=== PATIENT | female | born 1935 ===

== ENCOUNTER 2021-08-19 16:44 | Inpatient (IN) ==
[2021-08-19 18:00] LABS: Basophils % 0.2 %; Eosinophils % 0.1 %; Hematocrit 35.1 % (35.3-44.9); Hemoglobin 11.9 g/dL (11.5-15.4); Immature Granulocytes % 0.4 % (0-4); Lymphocytes # 1.1 K/mcL (0.6-4.6); Lymphocytes % 8.1 %; Mean Corpuscular HGB Conc 33.9 g/dL (31.6-35.5); Mean Corpuscular Hemoglobin 29.6 pg (28.0-33.3); Mean Corpuscular Volume 87.3 fL (83.0-100.0); Mean Platelet Volume 10.2 fL (9.4-12.4); Monocytes # 1.1 K/mcL (0.0-1.3); Monocytes % 7.9 %; Neutrophils # 11.4 K/mcL (1.6-8.9); Platelet Count 219 K/mcL (140-400); Red Blood Count 4.02 M/mcL (3.82-4.97); Red Cell Distribution Width 14.6 % (11.5-14.5); Segmented Neutrophils % 83.3 %; White Blood Count 13.7 K/mcL (4.3-11.1)
[2021-08-19 18:36] LABS: Alanine Aminotransferase 17 Units/L (7-52); Albumin 4.2 g/dL (3.5-5.7); Albumin/Globulin Ratio 1.6 (1.1-2.2); Alkaline Phosphatase 60 Units/L (34-104); Aspartate Amino Transferase 27 Units/L (13-39); BUN/Creatinine Ratio 28 (6-26); Bilirubin,Total 0.7 mg/dL (0.3-1.0); Blood Urea Nitrogen 16 mg/dL (8-23); Calcium 9.9 mg/dL (8.6-10.3); Carbon Dioxide 24 mEq/L (23-29); Chloride 91 mEq/L (98-107); Ethanol < 10 mg/dL (Less than 10); Globulin 2.7 g/dL (2.4-3.5); Glucose 145 mg/dL (70-105); Osmolality,Calculated 264 (280-300); Potassium 4.6 mEq/L (3.5-5.1); Sodium 125 mEq/L (136-145); Total Protein 6.9 g/dL (6.4-8.9); eGFR For African Americans > 60 (> 60); eGFR For Non-African Americans > 60 (> 60)
[2021-08-19 18:36] LABS: Amphetamine Screen,Urine Negative ng/mL (Cutoff=1000); Barbiturate Screen,Urine Negative ng/mL (Cutoff=200); Benzodiazepines Screen,Urine Negative ng/mL (Cutoff=200); Cannabinoid Screen,Urine Negative ng/mL (Cutoff = 50); Cocaine Screen,Urine Negative ng/mL (Cutoff= 300); Opiate Screen,Urine Positive ng/mL (Cutoff=300); Phencyclidine Screen,Urine Negative ng/mL (Cutoff=25)
[2021-08-19 18:37] LABS: Bacteria,Urine Few per hpf (None-Few); Bilirubin,Urine Negative (Negative); Blood,Urine Trace (Negative); Clarity,Urine Ex.Turbid (Clear); Color,Urine Yellow (Yellow); Glucose,Urine (UA) Normal (Normal); Ketones,Urine 20 mg/dL (Negative); Leukocyte Esterase,Urine Large (Negative); Mucus,Urine Few per lpf (None-Few); Nitrite,Urine Negative (Negative); Protein,Urine 50 mg/dL (Neg-Trace); RBC,Urine 0-3 per hpf (0-3); WBC,Urine TNTC per hpf (0-3)
[2021-08-19] MEDS ORDERED: Ondansetron 4 MG/2 ML VIAL IVP PRN (22:11)
[2021-08-19] MEDS ORDERED: Naloxone 0.4 MG/ML INJ IVP PRN (22:11)
[2021-08-19] MEDS ORDERED: Acetaminophen 325 MG TABLET PO PRN (22:11)
[2021-08-19 23:13] LABS: BUN/Creatinine Ratio 31 (6-26); Blood Urea Nitrogen 15 mg/dL (8-23); Calcium 8.8 mg/dL (8.6-10.3); Carbon Dioxide 20 mEq/L (23-29); Chloride 94 mEq/L (98-107); Glucose 132 mg/dL (70-105); Osmolality,Calculated 259 (280-300); Potassium 4.2 mEq/L (3.5-5.1); Sodium 123 mEq/L (136-145); eGFR For African Americans > 60 (> 60); eGFR For Non-African Americans > 60 (> 60)
[2021-08-20] MEDS ORDERED: 0.9 % Sodium Chloride 1,000 ML IVC SCH (00:15)
[2021-08-20 08:07] LABS: Basophils % 0.1 %; Eosinophils # 0.1 K/mcL (0.0-0.6); Eosinophils % 1.5 %; Immature Granulocytes % 0.4 % (0-4); Lymphocytes # 1.4 K/mcL (0.6-4.6); Lymphocytes % 16.9 %; Mean Corpuscular HGB Conc 33.8 g/dL (31.6-35.5); Mean Corpuscular Hemoglobin 29.9 pg (28.0-33.3); Mean Corpuscular Volume 88.4 fL (83.0-100.0); Mean Platelet Volume 10.1 fL (9.4-12.4); Monocytes # 1.2 K/mcL (0.0-1.3); Monocytes % 14.8 %; Neutrophils # 5.5 K/mcL (1.6-8.9); Platelet Count 170 K/mcL (140-400); Red Blood Count 3.28 M/mcL (3.82-4.97); Red Cell Distribution Width 14.5 % (11.5-14.5); Segmented Neutrophils % 66.3 %; White Blood Count 8.2 K/mcL (4.3-11.1)
[2021-08-20 08:14] LABS: INR 1.8; Prothrombin Time 19.9 Seconds (9.4-12.1)
[2021-08-20 08:16] LABS: Activated Partial Thrombo Time 63.3 Seconds (26.0-36.0); Hemoglobin 9.8 g/dL (11.5-15.4)
[2021-08-20 08:24] LABS: Alanine Aminotransferase 12 Units/L (7-52); Albumin 3.4 g/dL (3.5-5.7); Albumin/Globulin Ratio 1.7 (1.1-2.2); Alkaline Phosphatase 44 Units/L (34-104); Aspartate Amino Transferase 14 Units/L (13-39); BUN/Creatinine Ratio 32 (6-26); Bilirubin,Total 0.5 mg/dL (0.3-1.0); Blood Urea Nitrogen 18 mg/dL (8-23); Calcium 8.7 mg/dL (8.6-10.3); Carbon Dioxide 25 mEq/L (23-29); Chloride 95 mEq/L (98-107); Glucose 152 mg/dL (70-105); Magnesium 1.7 mg/dL (1.6-2.6); Osmolality,Calculated 265 (280-300); Phosphorous 2.4 mg/dL (2.7-4.5); Sodium 125 mEq/L (136-145); Total Protein 5.4 g/dL (6.4-8.9); eGFR For African Americans > 60 (> 60); eGFR For Non-African Americans > 60 (> 60)
[2021-08-20] MEDS ORDERED: Perflutren Lipid Microsphere 1.3 ML in 0.9 % Sodium Chloride 8.7 ML IVP PRN (08:59)
[2021-08-20] MEDS: 0.9 % Sodium Chloride 1,000 ML IVC SCH (11:56)
[2021-08-20 17:55] LABS: BUN/Creatinine Ratio 39 (6-26); Blood Urea Nitrogen 20 mg/dL (8-23); Calcium 8.6 mg/dL (8.6-10.3); Carbon Dioxide 23 mEq/L (23-29); Chloride 99 mEq/L (98-107); Glucose 127 mg/dL (70-105); Osmolality,Calculated 270 (280-300); Sodium 128 mEq/L (136-145); eGFR For African Americans > 60 (> 60); eGFR For Non-African Americans > 60 (> 60)
[2021-08-20 21:38] LABS: BUN/Creatinine Ratio 39 (6-26); Blood Urea Nitrogen 20 mg/dL (8-23); Calcium 8.4 mg/dL (8.6-10.3); Carbon Dioxide 23 mEq/L (23-29); Chloride 98 mEq/L (98-107); Glucose 120 mg/dL (70-105); Osmolality,Calculated 268 (280-300); Sodium 127 mEq/L (136-145); eGFR For African Americans > 60 (> 60); eGFR For Non-African Americans > 60 (> 60)
[2021-08-20] MEDS: Melatonin 3 MG TABLET PO PRN (22:25)
[2021-08-21] MEDS: Levothyroxine 25 MCG TABLET PO SCH (05:50)
[2021-08-21 07:05] LABS: Basophils % 0.3 %; Eosinophils # 0.2 K/mcL (0.0-0.6); Eosinophils % 2.6 %; Hematocrit 28.3 % (35.3-44.9); Hemoglobin 9.4 g/dL (11.5-15.4); Immature Granulocytes % 0.4 % (0-4); Lymphocytes # 1.1 K/mcL (0.6-4.6); Lymphocytes % 16.5 %; Mean Corpuscular HGB Conc 33.2 g/dL (31.6-35.5); Mean Corpuscular Hemoglobin 29.5 pg (28.0-33.3); Mean Corpuscular Volume 88.7 fL (83.0-100.0); Mean Platelet Volume 10.6 fL (9.4-12.4); Monocytes % 15.3 %; Neutrophils # 4.4 K/mcL (1.6-8.9); Platelet Count 175 K/mcL (140-400); Red Blood Count 3.19 M/mcL (3.82-4.97); Red Cell Distribution Width 14.3 % (11.5-14.5); Segmented Neutrophils % 64.9 %; White Blood Count 6.8 K/mcL (4.3-11.1)
[2021-08-21 07:28] LABS: BUN/Creatinine Ratio 34 (6-26); Blood Urea Nitrogen 17 mg/dL (8-23); Calcium 8.5 mg/dL (8.6-10.3); Carbon Dioxide 22 mEq/L (23-29); Chloride 97 mEq/L (98-107); Glucose 103 mg/dL (70-105); Magnesium 1.7 mg/dL (1.6-2.6); Osmolality,Calculated 262 (280-300); Potassium 4.6 mEq/L (3.5-5.1); Sodium 125 mEq/L (136-145); eGFR For African Americans > 60 (> 60); eGFR For Non-African Americans > 60 (> 60)
[2021-08-21] MEDS: 0.9 % Sodium Chloride 1,000 ML IVC SCH ×2 (07:50→10:42)
[2021-08-21 09:01] LABS: Troponin I 0.27 ng/mL (< 0.04)
[2021-08-21 14:28] LABS: BUN/Creatinine Ratio 30 (6-26); Blood Urea Nitrogen 16 mg/dL (8-23); Calcium 8.6 mg/dL (8.6-10.3); Carbon Dioxide 24 mEq/L (23-29); Chloride 97 mEq/L (98-107); Glucose 137 mg/dL (70-105); Osmolality,Calculated 263 (280-300); Potassium 4.4 mEq/L (3.5-5.1); Sodium 125 mEq/L (136-145); eGFR For African Americans > 60 (> 60); eGFR For Non-African Americans > 60 (> 60)
[2021-08-21] MEDS: QUEtiapine Fumarate 25 MG TABLET PO SCH ×2 (21:41→21:59)
[2021-08-21] MEDS ORDERED: Haloperidol Lactate 5 MG/ML VIAL IVP ONE (21:53)
[2021-08-22 07:02] LABS: Basophils % 0.4 %; Eosinophils % 0.1 %; Hemoglobin 10.8 g/dL (11.5-15.4); Immature Granulocytes % 0.7 % (0-4); Lymphocytes # 0.7 K/mcL (0.6-4.6); Mean Corpuscular HGB Conc 32.7 g/dL (31.6-35.5); Mean Corpuscular Hemoglobin 29.2 pg (28.0-33.3); Mean Corpuscular Volume 89.2 fL (83.0-100.0); Mean Platelet Volume 9.7 fL (9.4-12.4); Monocytes # 0.9 K/mcL (0.0-1.3); Monocytes % 8.9 %; Neutrophils # 8.5 K/mcL (1.6-8.9); Platelet Count 259 K/mcL (140-400); Red Cell Distribution Width 14.1 % (11.5-14.5); Segmented Neutrophils % 82.9 %
[2021-08-22 07:03] LABS: White Blood Count 10.3 K/mcL (4.3-11.1)
[2021-08-22 07:24] LABS: BUN/Creatinine Ratio 22 (6-26); Blood Urea Nitrogen 11 mg/dL (8-23); Calcium 9.4 mg/dL (8.6-10.3); Carbon Dioxide 26 mEq/L (23-29); Chloride 95 mEq/L (98-107); Glucose 143 mg/dL (70-105); Magnesium 1.7 mg/dL (1.6-2.6); Osmolality,Calculated 272 (280-300); Phosphorous 2.2 mg/dL (2.7-4.5); Potassium 3.5 mEq/L (3.5-5.1); Sodium 130 mEq/L (136-145); eGFR For African Americans > 60 (> 60); eGFR For Non-African Americans > 60 (> 60)
[2021-08-22] MEDS: 0.9 % Sodium Chloride 1,000 ML IVC SCH ×2 (07:36→16:17)
[2021-08-22] MEDS: Levothyroxine 25 MCG TABLET PO SCH (10:52)
[2021-08-22] MEDS ORDERED: Lidocaine HCL 4 ML Topical Solution (Laryng-O-Jet Kit Sterile Pak) TP ONE (12:11)
[2021-08-22] MEDS ORDERED: Lidocaine -MPF 2% 5 ML VIAL ONE (12:11)
[2021-08-22] MEDS ORDERED: *HR* Succinylcholine 200 MG/10 ML VIAL IVP ONE (12:11)
[2021-08-22] MEDS ORDERED: Ondansetron 4 MG/2 ML VIAL ONE (12:11)
[2021-08-22] MEDS ORDERED: *HR* FentaNYL (PF) 100 MCG/2 ML VIAL ONE (12:11)
[2021-08-22] MEDS ORDERED: *HR* Propofol 200 MG/20 ML VIAL IVP ONE (12:11)
[2021-08-22] MEDS ORDERED: *HR* Rocuronium Bromide 50 MG/5 ML VIAL ONE (12:11)
[2021-08-22] MEDS ORDERED: Vancomycin 1,000 MG VIAL ONE (12:24)
[2021-08-22] MEDS ORDERED: *HR* Etomidate 40 MG/20 ML VIAL IVP ONE (13:24)
[2021-08-22] MEDS ORDERED: TOTAL JOINT MIXTURE (100ML) INTRAART ONE (13:40)
[2021-08-22] MEDS ORDERED: Albuterol 2.5 MG/3 ML NEBULIZER IH PRN (13:51)
[2021-08-22] MEDS ORDERED: Ondansetron 4 MG/2 ML VIAL IVP PRN ×2 (13:51→14:54)
[2021-08-22] MEDS ORDERED: *HR* OxyCODONE Immed Rel 5 MG TABLET PO PRN ×2 (13:51→14:54)
[2021-08-22] MEDS ORDERED: *HR* Labetalol 20 MG/4 ML SYRINGE IVP PRN (13:51)
[2021-08-22] MEDS ORDERED: *HR* HYDROmorphone PF 0.5 MG/0.5 ML SYRINGE IVP PRN (13:51)
[2021-08-22] MEDS ORDERED: Naloxone 0.4 MG/ML INJ IVP PRN ×2 (13:51→14:54)
[2021-08-22] MEDS ORDERED: flumazeniL 0.5 MG/5 ML VIAL IVP PRN (13:51)
[2021-08-22] MEDS ORDERED: *HR* Meperidine 25 MG/ML SYRINGE IVP PRN (13:51)
[2021-08-22] MEDS ORDERED: Ipratropium Neb 0.5 MG NEBULIZER IH PRN (13:51)
[2021-08-22] MEDS ORDERED: Acetaminophen IV 1,000 MG/100 ML BAG IVPB PRN (13:51)
[2021-08-22] MEDS ORDERED: Tranexamic Acid 1,000 MG/10 ML VIAL ONE (14:11)
[2021-08-22] MEDS ORDERED: Acetaminophen IV 1,000 MG/100 ML BAG IVPB ONE (14:25)
[2021-08-22] MEDS ORDERED: Sennosides 8.6 MG TABLET PO PRN (14:54)
[2021-08-22] MEDS ORDERED: *HR* Promethazine 25 MG/ML VIAL IM PRN (14:54)
[2021-08-22] MEDS ORDERED: MOM Conc 10 ML UD.LIQ PO PRN (14:54)
[2021-08-22] MEDS ORDERED: Ringers Solution, Lactated 1,000 ML IVC SCH (15:00)
[2021-08-22] MEDS: Ascorbic Acid 500 MG TABLET PO SCH (18:00)
[2021-08-22] MEDS: QUEtiapine Fumarate 25 MG TABLET PO SCH (21:01)
[2021-08-22] MEDS: Aspirin Enteric Coated 81 MG Tablet PO SCH (21:16)
[2021-08-22] MEDS: Melatonin 3 MG TABLET PO PRN (23:34)
[2021-08-23 05:28] LABS: Basophils % 0.2 %; Eosinophils % 0.1 %; Hematocrit 27.6 % (35.3-44.9); Hemoglobin 9.5 g/dL (11.5-15.4); Immature Granulocytes % 0.5 % (0-4); Lymphocytes # 1.2 K/mcL (0.6-4.6); Lymphocytes % 12.6 %; Mean Corpuscular HGB Conc 34.4 g/dL (31.6-35.5); Mean Corpuscular Hemoglobin 29.5 pg (28.0-33.3); Mean Corpuscular Volume 85.7 fL (83.0-100.0); Mean Platelet Volume 10.1 fL (9.4-12.4); Monocytes # 1.3 K/mcL (0.0-1.3); Monocytes % 12.9 %; Neutrophils # 7.2 K/mcL (1.6-8.9); Platelet Count 230 K/mcL (140-400); Red Blood Count 3.22 M/mcL (3.82-4.97); Segmented Neutrophils % 73.7 %; White Blood Count 9.8 K/mcL (4.3-11.1)
[2021-08-23] MEDS: Levothyroxine 25 MCG TABLET PO SCH (05:34)
[2021-08-23] MEDS: 0.9 % Sodium Chloride 1,000 ML IVC SCH ×2 (06:55→09:47)
[2021-08-23 08:20] LABS: BUN/Creatinine Ratio 22 (6-26); Blood Urea Nitrogen 12 mg/dL (8-23); Calcium 7.4 mg/dL (8.6-10.3); Carbon Dioxide 21 mEq/L (23-29); Chloride 96 mEq/L (98-107); Glucose 111 mg/dL (70-105); Osmolality,Calculated 266 (280-300); Potassium 3.8 mEq/L (3.5-5.1); Sodium 128 mEq/L (136-145); eGFR For African Americans > 60 (> 60); eGFR For Non-African Americans > 60 (> 60)
[2021-08-23] MEDS: Multivit/Ca/Min/Fe/FA 1 TAB TABLET PO SCH (09:55)
[2021-08-23] MEDS: Aspirin Enteric Coated 81 MG Tablet PO SCH (09:55)
[2021-08-23] MEDS: Ascorbic Acid 500 MG TABLET PO SCH ×2 (09:56→16:52)
[2021-08-24] MEDS: Aspirin Enteric Coated 81 MG Tablet PO SCH ×3 (00:33→23:22)
[2021-08-24] MEDS: QUEtiapine Fumarate 25 MG TABLET PO SCH ×2 (00:33→23:22)
[2021-08-24 05:31] LABS: Phosphorous 2.2 mg/dL (2.7-4.5)
[2021-08-24 06:05] LABS: BUN/Creatinine Ratio 26 (6-26); Blood Urea Nitrogen 11 mg/dL (8-23); Calcium 8.4 mg/dL (8.6-10.3); Carbon Dioxide 25 mEq/L (23-29); Chloride 97 mEq/L (98-107); Glucose 98 mg/dL (70-105); Osmolality,Calculated 271 (280-300); Potassium 3.6 mEq/L (3.5-5.1); Sodium 131 mEq/L (136-145); eGFR For African Americans > 60 (> 60); eGFR For Non-African Americans > 60 (> 60)
[2021-08-24] MEDS: Ascorbic Acid 500 MG TABLET PO SCH ×2 (10:35→23:24)
[2021-08-24] MEDS: Multivit/Ca/Min/Fe/FA 1 TAB TABLET PO SCH (10:36)
[2021-08-24] MEDS: Levothyroxine 25 MCG TABLET PO SCH (10:36)
[2021-08-24] MEDS: Melatonin 3 MG TABLET PO PRN (23:22)
[2021-08-25 03:55] LABS: BUN/Creatinine Ratio 41 (6-26); Blood Urea Nitrogen 19 mg/dL (8-23); Calcium 8.4 mg/dL (8.6-10.3); Carbon Dioxide 26 mEq/L (23-29); Chloride 99 mEq/L (98-107); Glucose 126 mg/dL (70-105); Osmolality,Calculated 278 (280-300); Potassium 3.4 mEq/L (3.5-5.1); Sodium 132 mEq/L (136-145); eGFR For African Americans > 60 (> 60); eGFR For Non-African Americans > 60 (> 60)
[2021-08-25] MEDS: Aspirin Enteric Coated 81 MG Tablet PO SCH ×2 (09:37→20:39)
[2021-08-25] MEDS: Multivit/Ca/Min/Fe/FA 1 TAB TABLET PO SCH (09:37)
[2021-08-25] MEDS: Levothyroxine 25 MCG TABLET PO SCH (09:41)
[2021-08-25] MEDS: Ascorbic Acid 500 MG TABLET PO SCH ×2 (09:41→17:49)
[2021-08-25] MEDS: QUEtiapine Fumarate 25 MG TABLET PO SCH (20:39)
[2021-08-26] MEDS: Levothyroxine 25 MCG TABLET PO SCH (06:08)
[2021-08-26] MEDS: Multivit/Ca/Min/Fe/FA 1 TAB TABLET PO SCH (07:30)
[2021-08-26] MEDS: Aspirin Enteric Coated 81 MG Tablet PO SCH ×2 (07:30→20:55)
[2021-08-26] MEDS: Ascorbic Acid 500 MG TABLET PO SCH ×2 (07:32→16:02)
[2021-08-26] MEDS: QUEtiapine Fumarate 25 MG TABLET PO SCH (20:55)
[2021-08-26] MEDS: Melatonin 3 MG TABLET PO PRN (20:55)
[2021-08-27] MEDS: Levothyroxine 25 MCG TABLET PO SCH (06:48)
[2021-08-27] MEDS: Ascorbic Acid 500 MG TABLET PO SCH ×2 (08:08→16:49)
[2021-08-27] MEDS: Multivit/Ca/Min/Fe/FA 1 TAB TABLET PO SCH (08:08)
[2021-08-27] MEDS: Aspirin Enteric Coated 81 MG Tablet PO SCH ×2 (08:08→19:56)
[2021-08-27 09:21] LABS: BUN/Creatinine Ratio 36 (6-26); Blood Urea Nitrogen 18 mg/dL (8-23); Calcium 8.6 mg/dL (8.6-10.3); Carbon Dioxide 23 mEq/L (23-29); Chloride 97 mEq/L (98-107); Glucose 104 mg/dL (70-105); Osmolality,Calculated 266 (280-300); Potassium 4.9 mEq/L (3.5-5.1); Sodium 127 mEq/L (136-145); eGFR For African Americans > 60 (> 60); eGFR For Non-African Americans > 60 (> 60)
[2021-08-27] MEDS: QUEtiapine Fumarate 25 MG TABLET PO SCH (19:55)
[2021-08-27] MEDS: Melatonin 3 MG TABLET PO PRN (20:01)
[2021-08-28 02:38] LABS: Basophils # 0.1 K/mcL (0.0-0.2); Basophils % 0.8 %; Eosinophils # 0.3 K/mcL (0.0-0.6); Eosinophils % 4.2 %; Hematocrit 28.3 % (35.3-44.9); Hemoglobin 9.4 g/dL (11.5-15.4); Immature Granulocytes % 1.3 % (0-4); Lymphocytes # 1.8 K/mcL (0.6-4.6); Lymphocytes % 23.1 %; Mean Corpuscular HGB Conc 33.2 g/dL (31.6-35.5); Mean Corpuscular Hemoglobin 29.4 pg (28.0-33.3); Mean Corpuscular Volume 88.4 fL (83.0-100.0); Mean Platelet Volume 9.2 fL (9.4-12.4); Monocytes % 13.6 %; Neutrophils # 4.4 K/mcL (1.6-8.9); Platelet Count 316 K/mcL (140-400); Red Cell Distribution Width 13.9 % (11.5-14.5); White Blood Count 7.7 K/mcL (4.3-11.1)
[2021-08-28 02:39] LABS: BUN/Creatinine Ratio 48 (6-26); Blood Urea Nitrogen 23 mg/dL (8-23); Calcium 8.6 mg/dL (8.6-10.3); Carbon Dioxide 25 mEq/L (23-29); Chloride 97 mEq/L (98-107); Glucose 122 mg/dL (70-105); Magnesium 1.7 mg/dL (1.6-2.6); Osmolality,Calculated 269 (280-300); Phosphorous 3.4 mg/dL (2.7-4.5); Potassium 4.9 mEq/L (3.5-5.1); Sodium 127 mEq/L (136-145); eGFR For African Americans > 60 (> 60); eGFR For Non-African Americans > 60 (> 60)
[2021-08-28] MEDS: HYDROcodone BIT/Homatropine 5 MG TABLET PO PRN ×2 (04:06→19:51)
[2021-08-28] MEDS: Levothyroxine 25 MCG TABLET PO SCH (05:47)
[2021-08-28] MEDS: Aspirin Enteric Coated 81 MG Tablet PO SCH ×2 (08:36→19:51)
[2021-08-28] MEDS: Multivit/Ca/Min/Fe/FA 1 TAB TABLET PO SCH (08:36)
[2021-08-28] MEDS: Metoprolol XL (24 HR) Succ 25 MG TAB.ER.24H PO SCH ×2 (08:36→08:54)
[2021-08-28] MEDS: Ascorbic Acid 500 MG TABLET PO SCH ×2 (08:37→17:22)
[2021-08-28] MEDS: QUEtiapine Fumarate 25 MG TABLET PO SCH (19:51)
[2021-08-28] MEDS: Melatonin 3 MG TABLET PO PRN (19:51)
[2021-08-29] MEDS: Levothyroxine 25 MCG TABLET PO SCH (06:07)
[2021-08-29 07:00] LABS: BUN/Creatinine Ratio 46 (6-26); Blood Urea Nitrogen 21 mg/dL (8-23); Calcium 8.5 mg/dL (8.6-10.3); Carbon Dioxide 25 mEq/L (23-29); Chloride 96 mEq/L (98-107); Glucose 98 mg/dL (70-105); Magnesium 1.9 mg/dL (1.6-2.6); Osmolality,Calculated 265 (280-300); Phosphorous 3.6 mg/dL (2.7-4.5); Potassium 5.4 mEq/L (3.5-5.1); Sodium 126 mEq/L (136-145); eGFR For African Americans > 60 (> 60); eGFR For Non-African Americans > 60 (> 60)
[2021-08-29] MEDS: Metoprolol XL (24 HR) Succ 25 MG TAB.ER.24H PO SCH (07:30)
[2021-08-29] MEDS: Aspirin Enteric Coated 81 MG Tablet PO SCH ×2 (07:31→21:29)
[2021-08-29] MEDS: Multivit/Ca/Min/Fe/FA 1 TAB TABLET PO SCH (07:31)
[2021-08-29] MEDS: Ascorbic Acid 500 MG TABLET PO SCH ×2 (07:32→16:05)
[2021-08-29] MEDS ORDERED: 0.9 % Sodium Chloride 1,000 ML IVC SCH (16:00)
[2021-08-29] MEDS: QUEtiapine Fumarate 25 MG TABLET PO SCH (21:29)
[2021-08-29 21:38] LABS: Potassium,Urine 42.9 mEq/L; Sodium, Urine 27.8 mEq/L
[2021-08-30] MEDS: Levothyroxine 25 MCG TABLET PO SCH (04:56)
[2021-08-30 06:14] LABS: BUN/Creatinine Ratio 44 (6-26); Blood Urea Nitrogen 19 mg/dL (8-23); Calcium 8.2 mg/dL (8.6-10.3); Carbon Dioxide 23 mEq/L (23-29); Chloride 98 mEq/L (98-107); Glucose 108 mg/dL (70-105); Magnesium 1.9 mg/dL (1.6-2.6); Osmolality,Calculated 267 (280-300); Potassium 5.2 mEq/L (3.5-5.1); Sodium 127 mEq/L (136-145); eGFR For African Americans > 60 (> 60); eGFR For Non-African Americans > 60 (> 60)
[2021-08-30] MEDS: Aspirin Enteric Coated 81 MG Tablet PO SCH (08:06)
[2021-08-30] MEDS: Multivit/Ca/Min/Fe/FA 1 TAB TABLET PO SCH (08:06)
[2021-08-30] MEDS: Ascorbic Acid 500 MG TABLET PO SCH ×2 (08:06→17:28)
[2021-08-30] MEDS: Metoprolol XL (24 HR) Succ 25 MG TAB.ER.24H PO SCH (08:06)
[2021-08-30 11:18] VITALS: O2SAT 93
[2021-08-30 14:59] VITALS: BP 97/65; PULSE 71; TEMP 98.2
[2021-08-30 15:54] LABS: Influenza A PCR Negative (Negative); Influenza B PCR Negative (Negative); Resp. Syncytial Virus PCR Negative (Negative)
[2021-08-30 16:43] LABS: SARS-CoV-2 by PCR (In House) Negative (Negative)
== END 2021-08-30 19:13 | DRG 521 ==
LOC: EMEROOARM 16:44 → 4WAOSI 16:44 → SUATTDRO 20:47 → 4WAOSI 21:48 → SUATTDRO 08-20 13:40
PROVIDERS: ADMIT Internal Medicine; ATTEND Internal Medicine